=== PATIENT | male | born 1975 | race Caucasian/White ===

== ENCOUNTER 2019-08-07 20:30 | Emergency (ER) | payer OTHER ==
--- NOTE | 2019-08-07 20:48 | ED ---
HPI Chest Pain - HPI Summary HPI Summary: 43 year old male presents to the ED with a chief complaint of left-sided chest pain starting 3 hours ago. Patient was playing with his child, tossing him in the air, when he started to experience the pain. It is described as mild and dull. Patient denies nausea, diaphoresis, SOB, painful respiration, abdominal pain, or pain/swelling in his extremities. Patient does not smoke tobacco. History of epilepsy, otherwise healthy. No family history of MD. - History of Current Complaint Time Seen by Provider: 08/07/19 20:40 Hx Obtained From: Patient Onset/Duration: Started Hours Ago, Still Present Time of Onset: 17:00 Timing: Constant, Lasting Hours Initial Severity: Mild Current Severity: Mild Chest Pain Location: Left Anterior Chest Pain Radiates: No Character: Dull/Aching Aggravating Factor(s): Exertion Alleviating Factor(s): Nothing Associated Signs and Symptoms: Positive: Chest Pain. Negative: Shortness of Breath, Swelling, Diaphoresis, Nausea, Abdominal Pain, Calf Pain/Swelling - Allergy/Home Medications Allergies/Adverse Reactions: Allergies Allergy/AdvReac Type Severity Reaction Status Date / Time No Known Allergies Allergy Verified 04/02/19 08:57 Home Medications: Home Medications Al Hydrox/Mg Hydrox/Simet LIQ* [Maalox Plus*] 30 ml PO DAILY PRN 04/02/19 [ History Confirmed 08/07/19] clonazePAM TAB(*) [KlonoPIN TAB(*)] 0.25 mg PO BID PRN MDD 0.5 mg 04/02/19 [ History Confirmed 08/07/19] lamoTRIgine TAB(*) [LaMICtal TAB(*)] 100 mg PO BID 04/02/19 [History Confirmed 08/07/19] Ibuprofen TAB* [Advil TAB*] 200 mg PO DAILY PRN 04/25/19 [History Confirmed ] PMH/Surg Hx/FS Hx/Imm Hx History: Reports: Hx Kidney Stones Neurological History: Reports: Hx Seizures - Family History Known Family History: Negative: Cardiac Disease - Social History Alcohol Use: None Hx Substance Use: No Substance Use Type: Reports: None Hx Tobacco Use: No Review of Systems Negative: Skin Diaphoresis Positive: Chest Pain Negative: Shortness Of Breath Negative: Abdominal Pain, Nausea Negative: Myalgia, Edema All Other Systems Reviewed And Are Negative: Yes Physical Exam - Summary Physical Exam Summary: Appearance: Well-appearing, Well-nourished, lying in bed comfortably Skin: Warm, dry, no obvious rash Eyes: sclera anicteric, no conjunctival pallor HENT: mucous membranes moist, pharynx appears normal Neck: Supple, nontender Respiratory: Clear to auscultation, no signs of respiratory distress Cardiovascular: Normal S1, S2. No murmurs. Normal distal pulses in tibial and radial bilaterally. Abdomen: Soft, nontender, normal active bowel sounds present Musculoskeletal: Normal, Strength/ROM Intact Neurological: A&Ox3, awake and alert, mentation is normal, speech is fluent and appropriate Psychiatric: affect is normal, does not appear anxious or depressed Triage Information Reviewed: Yes Vital Signs Reviewed: Yes Procedures - Sedation Patient Received Moderate/Deep Sedation with Procedure: No Diagnostics - Laboratory Result Diagrams: 08/07/19 20:53 08/07/19 20:53 Lab Statement: Any lab studies that have been ordered have been reviewed, and results considered in the medical decision making process. - Radiology CXR Radiology Interpretation Completed By: ED Physician Summary of Radiographic Findings: No acute disease. An ED physician has reviewed this scan. Pending official read. - EKG 2034 Cardiac Rate: NL - 62 bpm EKG Rhythm: Sinus Rhythm ST Segment: Normal Ectopy: None EKG Comparison: No Significant Change Summary of EKG Findings: NSR at 62 BPM, P waves, QRS complex, and T waves are within normal limits, T waves and intervals are normal, no ischemic changes. This is a normal EKG. Dr. Ortega has reviewed and interpreted this EKG. Chest Pain Course/Dx - Course Course Of Treatment: 43 year old male presents to the ED with a chief complaint of left-sided chest pain starting 3 hours ago. Patient was playing with his child, tossing him in the air, when he started to experience the pain. It is described as mild and dull. Patient denies nausea, diaphoresis, SOB, painful respiration, abdominal pain, or pain/swelling in his extremities. Patient does not smoke tobacco. History of epilepsy, otherwise healthy. No family history of MD. NSR at 62 BPM, P waves, QRS complex, and T waves are within normal limits, T waves and intervals are normal, no ischemic changes. This is a normal EKG. CXR is normal. Lab results are normal. Diagnosis is atypical chest pain. Patient will be discharged home with instructions to follow up with his PCP in 2 -3 days. Patient understands and agrees with this plan. - Diagnoses Provider Diagnoses: Atypical chest pain Discharge ED - Sign-Out/Discharge Documenting (check all that apply): Patient Departure - discharge home - Discharge Plan Condition: Good Disposition: HOME Patient Education Materials: Chest Pain (ED) Referrals: Richelle Rodriguez MD [Primary Care Provider] - Additional Instructions: The tests we ran tonshilpa did not show any sign of a heart problem, and I feel it is safe for you to go home. I would recommend a followup visit with your regular doctor within a week or two. - Billing Disposition and Condition Condition: GOOD Disposition: Home - Attestation Statements Document Initiated by Pamella: Yes Documenting Scribe: Dada Stover Provider For Whom Pamella is Documenting (Include Credential): Dr. Bridger Ortega Scribe Attestation: I, Dada Stover, scribed for Dr. Bridger Ortega on 08/11/19 at 1917. Scribe Documentation Reviewed: Yes Provider Attestation: The documentation as recorded by the Dada fox accurately reflects the service I personally performed and the decisions made by me, Dr. Bridger Ortega Status of Scribritesh Document: Viewed
[2019-08-07 21:08] LABS: ABS Eosinophils 0.1 10^3/ul (0-0.6); ABS Monocytes 0.4 10^3/ul (0-0.8); ABS Neutrophils 4.8 10^3/ul (1.5-7.7); Hematocrit 40 % (42-52); Mean Corpuscular HGB Conc 35 g/dL (31-36); Mean Corpuscular Hemoglobin 29 pg (27-31); Mean Corpuscular Volume 84 fL (80-94); Mean Platelet Volume 8.3 fL (7.4-10.4); Platelet Count 211 10^3/uL (150-450); Red Blood Count 4.78 10^6 /uL (4.18-5.48); Red Cell Distribution Width 14 % (10-15); White Blood Count 7.3 10^3/uL (3.5-10.8)
--- OUTSIDE RECORDS SUMMARY | 2019-08-07 21:10 | XMS REPORT | Continuity of Care Document ---
:1975 External Reference #:[id number] Author Name Bailey Espinosa NP (transmitted by agent of provider Ifrah Martinez) Address [address] [place] [address] Care Team Providers Name Role Phone Richelle Rodriguez MD - Internal Care Team Information Profile Grinder Medicine Problems Active Problems Provider Date Gastroesophageal reflux disease Catrachito Lobato MD Onset: 12/05/2004 Note: clinical diagnosis of GERD made; EGD done 2011 in [facility] ( does not recall MD or findings though thinks they were mild) ; controls it in 2019 with diet and exercise; Seizure Catrachito Lobato MD Onset: 04/07/2017 Note: as of 12/05/18 one in his life in [facility]; EEG in [facility]; EEG October 2018 and to have video EEG in December (Dr Glenn Lizama found on line) - 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 Social History Type Date Description Comments Sex Unknown ETOH Use Denies alcohol use Tobacco Use Start: Unknown End: Patient is a former smoked 7 years, Unknown smoker about 1 pack per day Recreational Drug Use Denies Drug Use Smoking Status Reviewed: 05/20/19 Patient is a former smoked 7 years, smoker about 1 pack per day Exercise Type/Frequency Exercises regularly walks all day Allergies, Adverse Reactions, Alerts Description No Known Drug Allergies Medications Active Medications SIG Qnty Indications Ordering Provider Date Lamotrigine ER take one tablet Unknown 100mg twice daily Tablets ER 24HR Clonazepam take one tab by Unknown 0.25mg mouth as needed Tablets Dispers Maalox Max 4 teaspoons 1-2 Unknown 1000-60mg times weekly as Chewtabs needed Immunizations Description No Information Available Vital Signs Date Vital Result Comment 05/20/2019 4:16pm Height 73 inches 6'1" Weight 216.50 lb Heart Rate 66 /min BP Systolic 127 mmHg BP Diastolic 75 mmHg Respiratory Rate 16 /min O2 % BldC Oximetry 97 % BMI (Body Mass Index) 28.6 kg/m2 03/19/2019 2:05pm Height 73 inches 6'1" Weight 216.00 lb Heart Rate 75 /min BP Systolic 130 mmHg BP Diastolic 63 mmHg O2 % BldC Oximetry 97 % BMI (Body Mass Index) 28.5 kg/m2 Results Test Acquired Facility Test Result H/L Range Note Date Laboratory 07/31/2019 [facility] Covid19, Undetected Undetected 1 test finding [address] [place] [address] [phone] Laboratory 04/25/2019 [facility] Clotest SEE RESULT 2 test finding [address] [place] [address] [phone] CBC No Diff 04/15/2019 [facility] White Blood 6.6 10^3/uL Normal 3.5-10.[address] [place] [address] [phone] Red Blood Count 5.24 10^6/uL Normal 4.18-5.48 Hemoglobin 15.8 g/dL Normal 14.0-18.0 Hematocrit 45 % Normal 42-52 Mean Corpuscular Volume 86 fL Normal 80-94 Mean Corpuscular Hemoglobin 30 pg Normal 27-31 Mean Corpuscular HGB Conc 35 g/dL Normal 31-36 Red Cell Distribution Width 14 % Normal 10-15 Platelet Count 228 10^3/uL Normal 150-450 Mean Platelet Volume 9.0 fL Normal 7.4-10.4 Comp Metabolic 04/15/2019 [facility] Sodium 141 mmol/L Normal 135-[address] [place] [address] [phone] Potassium 4.5 mmol/L Normal 3.5-5.0 Chloride 103 mmol/L Normal 101-111 Co2 Carbon Dioxide 33 mmol/L High 22-32 Anion Gap 5 mmol/L Normal 2-11 Glucose 99 mg/dL Normal 70-100 Blood Urea Nitrogen 19 mg/dL Normal 6-24 Creatinine 1.01 mg/dL Normal 0.67-1.17 BUN/Creatinine Ratio 18.8 Normal 8-20 Calcium 10.1 mg/dL Normal 8.6-10.3 Total Protein 7.0 g/dL Normal 6.4-8.9 Albumin 4.9 g/dL Normal 3.2-5.2 Globulin 2.1 g/dL Normal 2-4 Albumin/Globulin Ratio 2.3 Normal 1-3 Total Bilirubin 0.50 mg/dL Normal 0.2-1.0 Alkaline Phosphatase 48 U/L Normal 34-104 Alt 40 U/L Normal 7-52 Ast 24 U/L Normal 13-39 Egfr Non- 81.0 >60 Egfr 98.0 >60 3 1 SARS-CoV-2 RNA is not detected. ADDITIONAL INFORMATION Testing was performed using the melissa SARS-CoV-2 assay ([employer] on the melissa 6800 System. Fact sheets for this Emergency Use Authorization (EUA) assay can be found at the following links: For Healthcare Providers: https://www.fda.gov/media/386042/download For Patients: https://www.fda.gov/media/308030/download Test Performed by: [place] [address] Technical Specialist: Td Juarez M.D. Ph.D.; CLIA# [id number] 2 SEE RESULT BELOW Name: KAMRON MCKEE : [address]: Catrachito Lobato MD Acct: [id number] Unit: [id number] AGE: 43 Location: ENDO Re04/25/19 SEX: M Status: REG REF SPEC: [id number] SOILA: 04/25/19-[address]: Catrachito Lobato MD REQ: [id number] RECD: 04/25/19 STATUS: [facility] DR: Richelle Rodriguez MD PC _ SOURCE: [facility]: ORDERED: Clotest Procedure Result Reported Site Clotest Final 04/26/19848 ML Clotest Negative * ML - Main Lab . END OF REPORT DEPARTMENT OF PATHOLOGY, [address] [place] [address] Joe Pulliam M.D. Director [facility] # [id number] 3 Because ethnic data is not always readily available, this report includes an eGFR for both -Americans and non- Americans. The National Kidney Disease Education Program (NKDEP) does not endorse the use of the MDRD equation for patients that are not between the ages of 18 and 70, are , have extremes of body size, muscle mass, or nutritional status, or are non- or non-. According to the National Kidney Foundation, irrespective of diagnosis, the stage of the disease is based on the level of kidney function: Stage Description GFR(mL/min/1.73 m(2)) 1 Kidney damage with normal or decreased GFR 90 2 Kidney damage with mild decrease in GFR 60-89 3 Moderate decrease in GFR 30-59 4 Severe decrease in GFR 15-29 5 Kidney failure <15 (or dialysis) Procedures Date Code Description Status 04/25/2019 87513 Endoscopy Upper GI Biopsy Completed Medical Devices Description No Information Available Encounters Type Date Location Provider Dx Diagnosis Office Visit 05/20/2019 [facility] Gastroenterology Bailey Mooney R12 Heartburn 4:00p SERENITY Espinosa G40.89 Other seizures Office 03/19/2019 [facility] Gastroenterology Bailey K21.9 Gastro-esophageal Visit 2:00p [place] reflux disease SERENITY Espinosa without esophagitis G40.89 Other seizures Assessments Date Code Description Provider 05/20/2019 R12 Heartburn Bailey Espinosa NP 05/20/2019 G40.89 Other seizures Bailey Espinosa NP 04/25/2019 K21.9 Gastro-esophageal reflux disease without Catrachito Lobato MD esophagitis 04/25/2019 K44.9 Diaphragmatic hernia without obstruction Catrachito Lobato MD or gangrene 03/19/2019 K21.9 Gastro-esophageal reflux disease without Bailey Espinosa NP esophagitis 03/19/2019 G40.89 Other seizures Bailey Espinosa NP Plan of Treatment 05/20/2019 - Bailey Espinosa [facility] HeartburnComments:Please follow up with your PCP as needed.Thank you for using [facility].G40.89 Other seizuresComments :Please follow up with your PCP as needed.Thank you for using [facility]. Functional Status Description No Information Available Mental Status Description No Information Available Referrals Description No Information Available
--- OUTSIDE RECORDS SUMMARY | 2019-08-07 21:10 | XMS REPORT | Continuity of Care Document ---
:1975 External Reference #:[id number] Author Name [facility] (transmitted by agent of provider Daryn Ling) Address [address] [place] [address] Care Team Providers Name Role Phone Richelle Rodriguez MD - Internal Care Team Information [place] [phone] Medicine Problems Active Problems Provider Date Gastroesophageal reflux disease Catrachito Lobato MD Onset: 12/05/2004 Note: clinical diagnosis of GERD made; EGD done 2011 in [facility] ( does not recall MD or findings though thinks they were mild) ; controls it in 2019 with diet and exercise; Seizure Catrachito Lobato MD Onset: 04/07/2017 Note: as of 12/05/18 one in his life in [facility]; EEG in [facility]; EEG October 2018 and to have video EEG in December (Dr Glenn Lizama found on line) - 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 Social History Type Date Description [...] Mass Index) 28.5 kg/m2 Results Test Acquired Date Facility Test Result H/L Range Note Laboratory test 04/25/2019 [facility] Clotest SEE RESULT [address] [place] [address] [phone] CBC No Diff 04/15/2019 [facility] White Blood 6.6 10^3/uL Normal 3.5-10.[address] [place] [address] [phone] Red Blood Count 5.24 10^6/uL Normal 4.18-5.48 Hemoglobin 15.8 g/dL Normal 14.0-18.0 Hematocrit 45 % Normal 42-52 Mean Corpuscular Volume 86 fL Normal 80-94 Mean Corpuscular Hemoglobin 30 pg Normal 27-31 Mean Corpuscular HGB Conc 35 g/dL Normal 31-36 Red Cell Distribution Width 14 % Normal 10-15 Platelet Count 228 10^3/uL Normal 150-450 Mean Platelet Volume 9.0 fL Normal 7.4-10.4 Comp Metabolic 04/15/2019 [facility] Sodium 141 mmol/L Normal 135-[address] [place] [address] [phone] Potassium 4.5 mmol/L Normal 3.5-5.0 Chloride 103 [...] Egfr Non- 81.0 >60 Egfr 98.0 >60 2 1 SEE RESULT BELOW Name: KAMRON MCKEE : [address]: Catrachito Lobato MD Acct: [id number] Unit: [id number] AGE: 43 Location: ENDO Re04/25/19 SEX: M Status: REG REF SPEC: [id number] SOILA: 04/25/19-[address] [facility] [address]: Catrachito Lobato MD REQ: [id number] RECD: 04/25/19 STATUS: [facility] DR: Richelle Rodriguez MD PC _ SOURCE: GAS ANTRUM SPDESC: ORDERED: Clotest Procedure Result Reported Site Clotest Final 04/26/19- 0849 ML Clotest Negative * ML - Main Lab . END OF REPORT DEPARTMENT OF PATHOLOGY, [address] [place] [address] Joe uPlliam M.D. Director [facility] # [id number] 2 Because ethnic data is not always readily [...] dialysis) Procedures Date Code Description Status 04/25/2019 89556 Endoscopy Upper GI Biopsy Completed Medical Devices Description No Information Available Encounters Type Date Location Provider Dx Diagnosis Office Visit 03/19/2019 [facility] Bailey Mooney K21.9 Gastro -esophageal 2:00p SERENITY Espinosa reflux disease without esophagitis G40.89 Other seizures Assessments Date Code Description Provider 05/20/2019 R12 Heartburn Bailey Espinosa NP 05/20/2019 G40.89 Other seizures Bailey Espinosa NP 04/25/2019 K21.9 Gastro-esophageal reflux disease without Peter TBobby CastroLuis Alfredo, MD esophagitis 04/25/2019 K44.9 Diaphragmatic hernia without obstruction Catrachito Lobato MD or gangrene 03/19/2019 K21.9 Gastro-esophageal reflux disease without Bailey Espinosa NP esophagitis 03/19/2019 G40.89 Other seizures Bailey Espinosa NP Plan of Treatment 05/20/2019 - Bailey Espinosa, NPR12 HeartburnComments:Please follow up with your PCP as needed.Thank you for using [facility].G40.89 Other seizuresComments :Please follow up with your PCP as needed.Thank you for using [facility]. Functional Status Description No Information Available Mental Status Description No Information Available Referrals Description No Information Available
[2019-08-07 21:19] LABS: Albumin 4.4 g/dL (3.2-5.2); Albumin/Globulin Ratio 1.8 (1-3); BUN/Creatinine Ratio 17.5 (8-20); Calcium 9.6 mg/dL (8.6-10.3); EGFR African American 85.2 (>60); EGFR Non-African American 70.4 (>60); Globulin 2.5 g/dL (2-4); Potassium 4.1 mmol/L (3.5-5.0); Total Bilirubin 0.4 mg/dL (0.2-1.0); Total Protein 6.9 g/dL (6.4-8.9)
[2019-08-07] MEDS ORDERED: Aspirin 81 mg CHEW TAB* 81 MG TAB.CHEW PO ONE (21:44)
[2019-08-08 00:19] VITALS: BP 116/62
== END 2019-08-08 00:10 | disposition home or self-care (01) ==
LOC: ED 20:30
DX: R07.89 Other chest pain (principal); R56.9 Unspecified convulsions; Z87.442 Personal history of urinary calculi; Z79.899 Other long term (current) drug therapy
CPT/HCPCS: 36415; 71045; 80053; 84484; 85025; 93005; 99284; A9270-GY